=== PATIENT | male | born 1950 | race Caucasian/White ===

== ENCOUNTER → 2016-07-17 | Outpatient (CLI) | payer OTHER ==
[~2016-07-17] VITALS: Ht 172.7 cm; Wt 74.8 kg
[~2016-07-17] MED LIST: AVALIDE 150/1 TABLET PO; AVALIDE 300/1 TABLET PO; B COMPLETE1 EACH PO; BACTRIM,SEPT1 TABLET PO; BIOTIN 5000MCG PO; CLINDAMYCIN HC300 MG PO; DIAZEPAM10 MG PO; DIAZEPAM5 MG PO; DURAGESIC50 MCG TD; DURAGESIC75 MCG TD; EFFEXOR XR150 MG PO; ERGOCALCIF50000 UNIT PO; FENTANYL1 EAC4 TD; FERROUS SULFAT325 MG PO; GABAPENTIN300 MG PO; INDERAL40 MG PO; IRBESARTAN150 MG PO; IRON325 M1 PO; LANSOPRAZOLE30 MG PO; LO-DOSE ASPIRIN81 M1 PO; MIRALAX255 GM PO; MORPHINE SULFAT15 M1 PO; MOTRIN600 MG PO; MOTRIN800 MG PO; NEURONTIN300 MG PO; NICOTINE PATCH1 EAC2 TD; OMEPRAZOLE40 M1 PO; OXYCODONE HCL10 MG PO; PAXIL20 MG PO; PERCOCET 5/31 TABLET PO; PREVACID30 MG PO; QUETIAPINE FUMA50 MG PO; ROXICODONE15 MG PO; SENNA8.6 MG PO; SUPER B-50 COM1 EACH PO; [UNRECOGNIZED DRUG - REMARK]
== END | disposition home or self-care (01) ==
LOC: AMB 06-26 11:30
DX: R19.7 Diarrhea, unspecified (principal); R63.4 Abnormal weight loss; Z68.23 Body mass index [BMI] 23.0-23.9, adult; R11.2 Nausea with vomiting, unspecified; I10 Essential (primary) hypertension; K21.9 Gastro-esophageal reflux disease without esophagitis; K74.60 Unspecified cirrhosis of liver; B19.20 Unspecified viral hepatitis C without hepatic coma; F12.10 Cannabis abuse, uncomplicated; F41.8 Other specified anxiety disorders; E61.1 Iron deficiency; F17.210 Nicotine dependence, cigarettes, uncomplicated; Z79.82 Long term (current) use of aspirin; Z79.899 Other long term (current) drug therapy; Z86.73 Personal history of transient ischemic attack (TIA), and cerebral infarction without residual deficits; Z83.3 Family history of diabetes mellitus; Z82.49 Family history of ischemic heart disease and other diseases of the circulatory system; Z80.0 Family history of malignant neoplasm of digestive organs
CPT/HCPCS: 88305; 93005; J1170; J2250; J2405; J3010

== ENCOUNTER 2016-09-20 15:41 | Emergency (ER) | payer OTHER ==
[~2016-09-20] VITALS: Ht 172.7 cm; Wt 75.0 kg
[2016-09-20 17:04] VITALS: BP 118/68
== END 2016-09-20 17:05 | disposition home or self-care (01) ==
LOC: EME 15:41
DX: M25.511 Pain in right shoulder (principal)
CPT/HCPCS: 73030; 99281; 99282

== ENCOUNTER → 2016-10-10 | Outpatient (CLI) | payer OTHER | END | disposition home or self-care (01) | LOC: MRI 13:44 → RAD 14:30 → MRI 14:30 | DX: M85.611 Other cyst of bone, right shoulder (principal); S43.491D Other sprain of right shoulder joint, subsequent encounter; M75.101 Unspecified rotator cuff tear or rupture of right shoulder, not specified as traumatic; M89.8X1 Other specified disorders of bone, shoulder | CPT/HCPCS: 73221 ==

== ENCOUNTER 2016-10-27 08:29 | Emergency (ER) | payer OTHER ==
[~2016-10-27] VITALS: Ht 172.7 cm; Wt 77.2 kg
[2016-10-27 10:55] LABS: ADD MIUA? YES; BILIRUBIN NEGATIVE; BLOOD NEGATIVE; COLOR YELLOW ((YELLOW)); GLUCOSE (STRIP) NEGATIVE; KETONES NEGATIVE; LEUKOCYTES TRACE; NITRITE NEGATIVE; PROTEIN (STRIP) NEGATIVE; SPECIFIC GRAVITY 1.018 (1.000-1.030)
[2016-10-27 11:03] LABS: BACTERIA RARE /HPF; EPITHELIAL CELLS NONE SEEN /HPF; MUCUS NONE SEEN /LPF; RED BLOOD CELLS 0-5 /HPF (0-5); UCUL ADDED? YES
[2016-10-27 11:50] VITALS: BP 157/78
== END 2016-10-27 11:52 | disposition home or self-care (01) ==
LOC: EME 08:29
PROVIDERS: Nurse Practitioner Family
DX: M51.36 Other intervertebral disc degeneration, lumbar region (principal); G89.29 Other chronic pain
CPT/HCPCS: 72131; 81003; 87086; 99281; 99284

== ENCOUNTER 2016-11-08 11:51 | Emergency (ER) | payer OTHER ==
[~2016-11-08] VITALS: Ht 172.7 cm; Wt 77.2 kg
[~2016-11-08 11:51] MED LIST changes: +MIRALAX17 GM PO; -MIRALAX255 GM PO
[2016-11-08 12:47] LABS: HEMATOCRIT 47.7 % (38.0-50.0); MCH 31.8 PG (29.0-34.0); MCV 90.9 FL (86-99); MEAN PLAT.VOLUME 9.8 uM^3 (9.0-12.4); PLATELET COUNT 300 K/uL (156-360); RBC DIS.WIDTH-CV 12.7 % (11.8-14.6); RBC DIS.WIDTH-SD 42.1 % (39-53); RED BLOOD COUNT 5.25 M/uL (4.00-5.50); WHITE BLOOD COUNT 9.3 K/uL (4.1-10.2)
[2016-11-08 12:54] LABS: CHLORIDE 105 mEq/L (99-109); POTASSIUM 4.3 mEq/L (3.7-5.4); SODIUM 138 mEq/L (136-147)
[2016-11-08 12:56] LABS: GLUCOSE 115 mg/dL (70-99)
[2016-11-08 12:57] LABS: ANION GAP 15 MEQ/L (2-14)
[2016-11-08 12:59] LABS: GFR ESTIMATE (CALCULATED) > 59 mL/min/
[2016-11-08 13:00] LABS: UREA NITROGEN (BUN) 23 mg/dL (9-23)
[2016-11-08] MEDS ORDERED: PROVENTIL,2.5 MG/3 M IH (15:18)
[2016-11-08] MEDS ORDERED: PREDNISONE20 MG PO (15:18)
[2016-11-08] MEDS ORDERED: NEBULIZER MC ×2 (15:19→16:22)
[2016-11-08] MEDS ORDERED: ROXICODONE5 MG PO (16:11)
[2016-11-08] MEDS ORDERED: FLONASE ALLERG9.9 ML BOTH NARES (16:12)
[2016-11-08] MEDS ORDERED: BIOTIN PLUS KE1 EACH PO (16:14)
[2016-11-08 17:06] VITALS: BP 181/93
== END 2016-11-08 17:06 | disposition home or self-care (01) ==
LOC: EME 11:51
DX: J40 Bronchitis, not specified as acute or chronic (principal); F17.200 Nicotine dependence, unspecified, uncomplicated; I10 Essential (primary) hypertension; F32.9 Major depressive disorder, single episode, unspecified; F41.9 Anxiety disorder, unspecified; Z86.73 Personal history of transient ischemic attack (TIA), and cerebral infarction without residual deficits; Z96.653 Presence of artificial knee joint, bilateral; Z79.82 Long term (current) use of aspirin
CPT/HCPCS: 71020; 80048; 85027; 94640; 94644; 99281; 99284; J7512

== ENCOUNTER 2017-01-22 13:27 | Emergency (ER) | payer OTHER ==
[~2017-01-22] VITALS: Ht 172.7 cm; Wt 75.0 kg
[~2017-01-22 13:27] MED LIST changes: +BIOTIN PLUS KE1 EACH PO; +FLONASE ALLERG9.9 ML BOTH NARES; +NEBULIZER MC; +PREDNISONE20 MG PO; +PROVENTIL,2.5 MG/3 M IH; +ROXICODONE5 MG PO
[2017-01-22 14:21] LABS: HEMATOCRIT 36.1 % (38.0-50.0); MCH 32.7 PG (29.0-34.0); MCHC 34.1 G/DL (30.0-36.0); MEAN PLAT.VOLUME 9.9 uM^3 (9.0-12.4); PLATELET COUNT 129 K/uL (156-360); RBC DIS.WIDTH-CV 13.2 % (11.8-14.6); RBC DIS.WIDTH-SD 46.3 % (39-53); RED BLOOD COUNT 3.76 M/uL (4.00-5.50)
[2017-01-22 14:42] LABS: CHLORIDE 102 mEq/L (99-109); POTASSIUM 3.7 mEq/L (3.7-5.4); SODIUM 136 mEq/L (136-147)
[2017-01-22 14:43] LABS: GLUCOSE 124 mg/dL (70-99)
[2017-01-22 14:45] LABS: ANION GAP 8 MEQ/L (2-14)
[2017-01-22 14:47] LABS: GFR ESTIMATE (CALCULATED) > 59 mL/min/ (58.99-99999)
[2017-01-22 14:48] LABS: UREA NITROGEN (BUN) 21 mg/dL (9-23)
[2017-01-22] MEDS ORDERED: CLEOCIN300 MG PO (15:29)
[2017-01-22 15:44] VITALS: BP 183/102
== END 2017-01-22 15:47 | disposition home or self-care (01) ==
LOC: EME 13:27
PROVIDERS: Emergency Medicine
DX: R60.0 Localized edema (principal); K04.7 Periapical abscess without sinus; S02.5XXA Fracture of tooth (traumatic), initial encounter for closed fracture; X58.XXXA Exposure to other specified factors, initial encounter; M79.671 Pain in right foot; M79.672 Pain in left foot; H92.09 Otalgia, unspecified ear; I10 Essential (primary) hypertension; Z79.82 Long term (current) use of aspirin; F17.200 Nicotine dependence, unspecified, uncomplicated
CPT/HCPCS: 80048; 85027; 99281; 99284

== ENCOUNTER → 2017-04-03 | Outpatient (CLI) | payer OTHER ==
[~2017-04-03] MED LIST changes: +CLEOCIN300 MG PO
== END | disposition home or self-care (01) ==
LOC: RAD 13:13
DX: M48.061 Spinal stenosis, lumbar region without neurogenic claudication (principal); M46.96 Unspecified inflammatory spondylopathy, lumbar region; M51.26 Other intervertebral disc displacement, lumbar region; M25.48 Effusion, other site; M54.16 Radiculopathy, lumbar region; R15.9 Full incontinence of feces
CPT/HCPCS: 72148